=== PATIENT | female | born 1960 | race Caucasian/White ===

== ENCOUNTER → 2021-10-09 | Outpatient (CLI) | payer MEDICARE ==
--- NOTE | 2021-10-09 12:05 | XR ---
EXAMINATION TYPE: XR chest 2V DATE OF EXAM: 10/09/2021 COMPARISON: NONE TECHNIQUE: PA and lateral views submitted. HISTORY: Preop FINDINGS: The lungs are clear and there is no pneumothorax, pleural effusion, or focal pneumonia. Surgical ch asiya involving the vertebral column with scoliosis and multilevel degenerative disc disease. Heart si ze normal with no overt failure. IMPRESSION: 1. No acute process.
[2021-10-09 12:27] LABS: Partial Thromboplastin Time 24.7 sec (22.0-30.0); Prothrombin Time 11.2 sec (9.0-12.0)
[2021-10-09 19:02] LABS: Basophils # (A) 0.05 X 10*3/uL (0.00-0.10); Basophils % (A) 0.6 %; Eosinophils # (A) 0.17 X 10*3/uL (0.04-0.35); HCT 40.2 % (37.2-46.3); HGB 13.2 g/dL (12.0-15.0); Immature Grans, Automated 0.2 %; Lymphocytes # (A) 3.14 X 10*3/uL (0.90-5.00); Lymphocytes % (A) 37.7 %; MCH 32.3 pg (27.0-32.0); MCHC 32.8 g/dL (32.0-37.0); MCV 98.3 fL (80.0-97.0); Mean Platelet Volume 10.1 fL (9.5-12.2); Monocytes # (A) 0.53 X 10*3/uL (0.20-1.00); Monocytes % (A) 6.4 %; NRBC Per 100 WBC 0 /100 WBCS (0.0-0.0); Neutrophils # (A) 4.41 X 10*3/uL (1.80-7.70); Neutrophils % (A) 53.1 %; Platelet Count 307 X 10*3/uL (140-440); RBC 4.09 X 10*6/uL (4.10-5.20); RDW 12.9 % (11.5-14.5); WBC 8.32 X 10*3/uL (4.50-10.00)
[2021-10-09 21:57] LABS: African American GFR (CKD) 109.1 (60.0-200.0); Albumin 4.5 g/dL (3.8-4.9); Albumin/Globulin Ratio 2.25 (1.60-3.17); Anion Gap 8.7 mmol/L (10.00-18.00); BUN/Creat Ratio 17.29 Ratio (12.00-20.00); Blood Urea Nitrogen 12.1 mg/dL (9.0-27.0); Calcium 9.6 mg/dL (8.7-10.3); Carbon Dioxide 26.3 mmol/L (20.0-27.5); Non-African American GFR(CKD) 94.2 (60.0-200.0); Potassium 4.3 mmol/L (3.5-5.5); Total Bilirubin 0.3 mg/dL (0.30-1.20); Total Protein 6.5 g/dL (6.2-8.2)
== END | disposition home or self-care (01) ==
LOC: LABWHC1 11:34
PROVIDERS: ATTEND Family Medicine
DX: Z01.818 Encounter for other preprocedural examination (principal)
CPT/HCPCS: 36415; 71046; 80053; 85025; 85610; 85730

== ENCOUNTER → 2022-02-18 | Outpatient (CLI) | payer MEDICARE ==
--- NOTE | 2022-02-19 05:41 | MR ---
EXAMINATION TYPE: MR hip LT wo con DATE OF EXAM: 02/18/2022 COMPARISON: None HISTORY: LEFT HIP PAIN Multiplanar multi echo imaging of the pelvis and left hip without contrast. The proximal femurs appear intact. There is no evidence of avascular necrosis. The acetabula. Intact. No free fluid in the pelvis. Bladder distends smoothly. No evidence of a pelvic mass. No evidence of any significant hip joint effusion. The soft tissues have fairly normal signal pattern. No evidence of soft tissue mass. No sign of a bowel obstruction. Sacroiliac joints appear normal. IMPRESSION: Negative MR scan of the pelvis and left hip.
== END | disposition home or self-care (01) ==
LOC: RADMRIMAIN 06:20
PROVIDERS: ATTEND Orthopaedic Surgery
DX: M25.552 Pain in left hip (principal)

== ENCOUNTER 2022-11-02 14:34 | Emergency (ER) | payer MEDICARE ==
[2022-11-02] MEDS ORDERED: PROPARACAINE 0.5% OPHTH DROPS 15 ML BTL LEFT EYE STA (15:18)
[2022-11-02] MEDS ORDERED: FLUORESCEIN STRIPS 1 MG STRIP LEFT EYE ONE (15:21)
--- NOTE | 2022-11-02 15:26 | ED ---
Eye Problem HPI - General Chief complaint: Eye Problems Stated complaint: left eye injury Time Seen by Provider: 11/02/22 15:17 Source: patient, RN notes reviewed Mode of arrival: ambulatory - History of Present Illness Initial comments: Patient is a 62-year-old female presenting the emergency room with pain in her left eye which began after she had debris fly into her eye while weed whacking prior to her arrival to the emergency room. She typically wears glasses consequently her uncorrected vision is impaired but she reports no changes from her chronic visual impairment. She has not brought her glasses with her for visual acuity to be completed with her glasses on. She denies any injury to any other location. - Related Data Allergies Allergy/AdvReac Type Severity Reaction Status Date / Time Penicillins Allergy Rash/Hives Verified 11/02/22 15:03 Review of Systems ROS Statement: Those systems with pertinent positive or pertinent negative responses have been documented in the HPI. ROS Other: All systems not noted in ROS Statement are negative. Past Medical History Past Medical History: Hypertension History of Any Multi-Drug Resistant Organisms: None Reported Past Surgical History: Adenoidectomy, Bladder Surgery, Tonsillectomy Additional Past Surgical History / Comment(s): eavn in back l1-l5 Past Psychological History: No Psychological Hx Reported Smoking Status: Current every day smoker Past Alcohol Use History: Occasional Past Drug Use History: None Reported General Exam Limitations: no limitations General appearance: alert, in no apparent distress Head exam: Present: atraumatic, normocephalic, normal inspection Eye exam: Present: EOMI, conjunctival injection, other (Corneal abrasion to left cornea approximately 9:00. No foreign body.). Absent: nystagmus Expanded Eyelids: Erythema: Left (Lower), Swelling: Left (Lower) Pupils: Regular, Round: Bilateral Visual acuity (R) = 20/: 25 Visual acuity (L) = 20/: 40 With correction: No (Wears glas) ENT exam: Present: mucous membranes moist Neck exam: Present: normal inspection, full ROM Respiratory exam: Absent: respiratory distress, accessory muscle use Cardiovascular Exam: Present: regular rate Extremities exam: Present: normal inspection Back exam: Present: normal inspection Neurological exam: Present: alert, oriented X3, CN II-XII intact Psychiatric exam: Present: normal affect, normal mood Skin exam: Present: warm, dry, intact, normal color. Absent: rash Course Vital Signs 11/02/22 14:58 Temperature 98.7 F Pulse Rate 75 Respiratory 18 Rate Blood Pressure 160/77 O2 Sat by Pulse 95 Oximetry Medical Decision Making - Medical Decision Making Was pt. sent in by a medical professional or institution ([facility], [facility], urgent care, hospital, or snf...) When possible be specific @ -No Did you speak to anyone other than the patient for history (EMS, parent, family, police, friend...)? What history was obtained from this source @ -No Did you review nursing and triage notes (agree or disagree)? Why? @ -I reviewed and agree with nursing and triage notes Were old charts reviewed (outside hosp., previous admission, EMS record, old EKG, old radiological studies, urgent care reports/EKG's, snf records)? Report findings @ -No old charts were reviewed Differential Diagnosis (chest pain, altered mental status, abdominal pain women, abdominal pain men, vaginal bleeding, weakness, fever, dyspnea, syncope, headache, dizziness, GI bleed, back pain, seizure, CVA, palpatations, mental health, musculoskeletal)? @ -Differential eye pain: Conjunctivitis, corneal abrasion, foreign body in the cornea, acute iritis, periorbital cellulitis this is not meant to be an all-inclusive list. EKG interpreted by me (3pts min.). @ -None done X-rays interpreted by me (1pt min.). @ -None done CT interpreted by me (1pt min.). @ -None done U/S interpreted by me (1pt. min.). @ -None done What testing was considered but not performed or refused? (CT, X-rays, U/S, labs)? Why? @ -None What meds were considered but not given or refused? Why? @ -None Did you discuss the management of the patient with other professionals (professionals i.e. [facility], [facility], lab, RT, psych nurse, social security assessor, schedule checker, teacher, chief sales officer, case management social worker)? Give summary @ -No Was smoking cessation discussed for >3mins.? @ -No Was critical care preformed (if so, how long)? @ -No Were there social determinants of health that impacted care today? How? (Homelessness, low income, unemployed, alcoholism, drug addiction, dubon sportation, low edu. Level, literacy, decrease access to med. care, long term, rehab)? @ -No Was there de-escalation of care discussed even if they declined (Discuss DNR or withdrawal of care, Hospice)? DNR status @ -No What co-morbidities impacted this encounter? (DM, HTN, Smoking, COPD, CAD, Cancer, CVA, ARF, Chemo, Hep., AIDS, mental health diagnosis, sleep apnea, morbid obesity)? @ -None Was patient admitted / discharged? Hospital course, mention meds given and route, prescriptions, significant lab abnormalities, going to OR and other pertinent info. @ -62-year-old female presenting the emergency room with pain in her left eye which began after she had debris fly into her eye while weed whacking prior to her arrival to the emergency room. She typically wears glasses consequently her uncorrected vision is impaired but she reports no changes from her chronic visual impairment. Proparacaine and fluorescein administered 2 left eye without complication. Exam reveals corneal abrasion at 9:00 without any evidence of foreign body in the eye. Visual acuity impaired but at baseline. No indication for any diagnostic imaging, laboratory studies are other medication administration. Findings discussed with patient and spouse at bedside. Questions and concerns answered. Return parameters to the emergency room discussed. Will discharge home in stable condition with education regarding corneal abrasion to left eye advising follow-up with her care giver. Undiagnosed new problem with uncertain prognosis? @ -No Drug Therapy requiring intensive monitoring for toxicity (Heparin, Nitro, Insu andrey, Cardizem)? @ -No Were any procedures done? @ -No Diagnosis/symptom? @ -Left corneal abrasion Acute, or Chronic, or Acute on Chronic? @ -Acute Uncomplicated (without systemic symptoms) or Complicated (systemic symptoms)? @ -Uncomplicated Side effects of treatment? @ -No Exacerbation, Progression, or Severe Exacerbation? @ -No Poses a threat to life or bodily function? How? (Chest pain, [place], [place], pneumonia, PE, COPD, DKA, ARF, appy, cholecystitis, CVA, Diverticulitis, Homicidal, Suicidal, threat to staff... and all critical care pts) @ -No Case discussed with Dr. Radford. Disposition Clinical Impression: Corneal abrasion Disposition: HOME SELF-CARE Condition: Stable Instructions (If sedation given, give patient instructions): Corneal Abrasion (ED) Additional Instructions: Keep eye well lubricated. Avoid rubbing near eyebrow. Please follow-up with your care giver. Please return to the Emergency Department if symptoms worsen or any other concerns. Is patient prescribed a controlled substance at d/c from ED?: No Referrals: Tomasz French DO [Primary Care Provider] - 1-2 days Time of Disposition: 15:49
[2022-11-02 16:02] VITALS: BP 174/96; PULSE 60; RESP 16; TEMP 98
== END 2022-11-02 16:03 | disposition home or self-care (01) ==
LOC: EC 14:34
DX: S05.02XA Injury of conjunctiva and corneal abrasion without foreign body, left eye, initial encounter (principal); I10 Essential (primary) hypertension; F17.200 Nicotine dependence, unspecified, uncomplicated; Z88.0 Allergy status to penicillin; X58.XXXA Exposure to other specified factors, initial encounter
CPT/HCPCS: 99283